=== PATIENT | male | born 1930 | race Caucasian/White ===

== ENCOUNTER 2018-04-13 12:52 | Emergency (ER) | payer MEDICARE, BC ==
[2018-04-13 13:16] LABS: ADD MAN DIFF? NO
[2018-04-13] MEDS: SOD CHLORIDE 0.9% 1,000 ML IV (13:16)
[2018-04-13 13:18] LABS: ABNORMAL IP MESSAGE 1; BASOPHILS % 0.2 % (0.0-2.0); EOSINOPHILS % 0.2 % (0.0-7.0); LYMPHOCYTES # 1.8 10^3/ul (0.8-2.9); MEAN CORPUSCULAR HEMOGLOBIN 31.4 pg (29.0-33.0); MEAN CORPUSCULAR HGB CONC 32.4 g/dl (32.0-37.0); MEAN CORPUSCULAR VOLUME 97.1 fl (82.0-101.0); MEAN PLATELET VOLUME 10.8 fl (7.4-10.4); MONOCYTE # 1.2 10^3/ul (0.3-0.9); MONOCYTES % 21.6 % (0.0-11.0); NEUTROPHIL # 2.7 10^3/ul (1.6-7.5); NEUTROPHILS % 46.3 % (39.0-77.0); PLATELET COUNT 96 10^3/UL (140-415); POSITIVE DIFF @See below; RED CELL DISTRIBUTION WIDTH 13.9 % (11.5-14.5)
[2018-04-13 13:18] LABS: WHITE BLOOD COUNT 5.7 10^3/ul (4.8-10.8)
[2018-04-13 13:40] LABS: ANION GAP 5 (5-13); BLOOD UREA NITROGEN 17 mg/dl (7-20); CALCIUM 8.4 mg/dl (8.4-10.2); CARBON DIOXIDE 25 mmol/L (21-31); CHLORIDE 110 mmol/L (97-110); CREATININE 0.98 mg/dl (0.61-1.24); GLUCOSE 106 mg/dl (70-220); POTASSIUM 4.4 mmol/L (3.5-5.1); SODIUM 140 mmol/L (135-144)
[2018-04-13 13:51] LABS: TROPONIN-I < 0.012 ng/ml (0.000-0.120)
[2018-04-13] MEDS: IOHEXOL 100 ML (13:55)
[2018-04-13] MEDS: SOD CHLORIDE 0.9% 100 ML (13:55)
[2018-04-13 14:32] LABS: INR 1.13; PROTIME 14.7 Sec (11.9-14.9); PT RATIO 1.1
[2018-04-13 14:33] LABS: PARTIAL THROMBOPLASTIN TIME 27.8 Sec (23.0-35.0)
== END 2018-04-13 20:07 | disposition short-term general hospital (02) ==
LOC: E/R 12:52
DX: I71.4 Abdominal aortic aneurysm, without rupture (principal); J44.9 Chronic obstructive pulmonary disease, unspecified; I10 Essential (primary) hypertension; Z79.01 Long term (current) use of anticoagulants; Z79.82 Long term (current) use of aspirin; Z87.891 Personal history of nicotine dependence
CPT/HCPCS: 36415; 70450; 71045; 75635; 80048; 84484; 85025; 85610; 85730; 93005; 99285-25

== ENCOUNTER 2018-07-25 17:17 | Inpatient (IN) | payer MEDICARE, BC ==
[2018-07-25 19:11] LABS: ADD MAN DIFF? NO
[2018-07-25 19:13] LABS: ABNORMAL IP MESSAGE 1; BASOPHILS % 0.2 % (0.0-2.0); EOSINOPHILS # 0.1 10^3/ul (0.0-0.5); EOSINOPHILS % 1.6 % (0.0-7.0); HEMATOCRIT 30.9 % (42.0-52.0); HEMOGLOBIN 9.9 g/dl (14.0-18.0); LYMPHOCYTES # 1.6 10^3/ul (0.8-2.9); LYMPHOCYTES % 27.8 % (15.0-51.0); MEAN CORPUSCULAR VOLUME 96.9 fl (82.0-101.0); MEAN PLATELET VOLUME 9.7 fl (7.4-10.4); MONOCYTE # 0.8 10^3/ul (0.3-0.9); MONOCYTES % 13.5 % (0.0-11.0); NEUTROPHIL # 3.2 10^3/ul (1.6-7.5); NEUTROPHILS % 55.9 % (39.0-77.0); PLATELET COUNT 92 10^3/UL (140-415); POSITIVE DIFF @See below; RED BLOOD COUNT 3.19 10^6/ul (4.70-6.10); RED CELL DISTRIBUTION WIDTH 15.6 % (11.5-14.5)
[2018-07-25 19:13] LABS: WHITE BLOOD COUNT 5.7 10^3/ul (4.8-10.8)
[2018-07-25 19:14] LABS: URINE BLOOD (Dip) POC Negative (NEGATIVE); URINE GLUCOSE (Dip) POC Negative (NEGATIVE); URINE KETONES (Dip) POC 1+ (NEGATIVE); URINE LEUKOCYTE EST (Dip) POC Negative (NEGATIVE); URINE NITRITE (Dip) POC Negative (NEGATIVE); URINE TOTAL PROTEIN POC Negative (NEGATIVE)
[2018-07-25 19:34] LABS: ALANINE AMINOTRANSFERASE 18 IU/L (13-69); ALBUMIN/GLOBULIN RATIO 1.07; ALKALINE PHOSPHATASE 52 IU/L (42-121); ANION GAP 8 (5-13); ASPARTATE AMINO TRANSFERASE 17 IU/L (15-46); BILIRUBIN,INDIRECT 0.1 mg/dl (0-1.1); BILIRUBIN,TOTAL 0.1 mg/dl (0.2-1.3); BLOOD UREA NITROGEN 12 mg/dl (7-20); CALCIUM 8.3 mg/dl (8.4-10.2); CARBON DIOXIDE 27 mmol/L (21-31); CHLORIDE 107 mmol/L (97-110); GLUCOSE 84 mg/dl (70-220); LIPASE 121 U/L (23-300); POTASSIUM 4.6 mmol/L (3.5-5.1); SODIUM 142 mmol/L (135-144); TOTAL PROTEIN 5.8 g/dl (6.1-8.1)
[2018-07-25] MEDS ORDERED: NACL 0.9% 3 ML SYG IV (21:30)
[2018-07-25] MEDS ORDERED: morphine 2 MG INJ IV (21:30)
[2018-07-25] MEDS ORDERED: LABETALOL HCL 20MG INJ IV (21:30)
[2018-07-25] MEDS ORDERED: ONDANSETRON 4 MG INJ IV (21:30)
[2018-07-25] MEDS: SOD CHLORIDE 0.9% 1,000 ML IV (21:46)
[2018-07-25] MEDS: VALPROATE INJ 500 MG in SOD CHLORIDE 0.9% 50 ML IVPB (21:46)
[2018-07-25] MEDS: SOD CHLORIDE 0.9% 100 ML (21:53)
[2018-07-25] MEDS: IOHEXOL 100 ML (21:54)
[2018-07-25] MEDS ORDERED: LIDOCAINE 5% PATCH TD (22:00)
[2018-07-25 22:09] LABS: PLATELET COUNT 98 10^3/UL (140-415)
[2018-07-25 22:19] LABS: INR 1.09; PROTIME 14.2 Sec (11.9-14.9); PT RATIO 1.1
[2018-07-25 22:27] LABS: THROMBIN TIME 15.4 SEC (13.8-19.1)
[2018-07-25 22:39] LABS: VALPROATE 89 ug/ml (50-100)
[2018-07-26] MEDS: CEFEPIME 1GM/50 ML (PMX) 50 ML IVPB ×3 (00:22→21:59)
[2018-07-26 05:47] LABS: ADD MAN DIFF? NO
[2018-07-26] MEDS: PANTOPRAZOLE 40 MG INJ IV ×2 (05:59→08:43)
[2018-07-26 06:15] LABS: WHITE BLOOD COUNT 4.3 10^3/ul (4.8-10.8)
[2018-07-26 06:15] LABS: ABNORMAL IP MESSAGE 1; BASOPHILS % 0.2 % (0.0-2.0); EOSINOPHILS # 0.1 10^3/ul (0.0-0.5); EOSINOPHILS % 2.3 % (0.0-7.0); HEMOGLOBIN 9.5 g/dl (14.0-18.0); LYMPHOCYTES # 1.4 10^3/ul (0.8-2.9); LYMPHOCYTES % 32.9 % (15.0-51.0); MEAN CORPUSCULAR HEMOGLOBIN 31.1 pg (29.0-33.0); MEAN CORPUSCULAR HGB CONC 32.8 g/dl (32.0-37.0); MEAN CORPUSCULAR VOLUME 95.1 fl (82.0-101.0); MEAN PLATELET VOLUME 9.9 fl (7.4-10.4); MONOCYTE # 0.7 10^3/ul (0.3-0.9); MONOCYTES % 16.7 % (0.0-11.0); NEUTROPHILS % 46.7 % (39.0-77.0); PLATELET COUNT 84 10^3/UL (140-415); POSITIVE DIFF @See below; RED BLOOD COUNT 3.05 10^6/ul (4.70-6.10); RED CELL DISTRIBUTION WIDTH 15.6 % (11.5-14.5)
[2018-07-26 06:22] LABS: ALANINE AMINOTRANSFERASE 18 IU/L (13-69); ALBUMIN 2.7 g/dl (3.3-4.9); ALKALINE PHOSPHATASE 48 IU/L (42-121); ANION GAP 7 (5-13); ASPARTATE AMINO TRANSFERASE 15 IU/L (15-46); BILIRUBIN,INDIRECT 0.1 mg/dl (0-1.1); BILIRUBIN,TOTAL 0.1 mg/dl (0.2-1.3); BLOOD UREA NITROGEN 12 mg/dl (7-20); CARBON DIOXIDE 27 mmol/L (21-31); CHLORIDE 106 mmol/L (97-110); CHOL/HDL RATIO 2.4 RATIO; CHOLESTEROL 74 mg/dl (100-200); CREATININE 0.96 mg/dl (0.61-1.24); GLUCOSE 77 mg/dl (70-220); HDL CHOLESTEROL 30 mg/dl (31-75); LDL CHOLESTEROL,CALCULATED 28 mg/dl; POTASSIUM 4.2 mmol/L (3.5-5.1); SODIUM 140 mmol/L (135-144); TOTAL PROTEIN 5.4 g/dl (6.1-8.1); TRIGLYCERIDES 82 mg/dl (0-149)
[2018-07-26 06:40] LABS: HEMOGLOBIN A1C 4.8 % (0-5.9)
[2018-07-26] MEDS: SOD CHLORIDE 0.9% 1,000 ML IV (06:45)
[2018-07-26] MEDS: VALPROATE INJ 500 MG in SOD CHLORIDE 0.9% 50 ML IVPB (11:09)
[2018-07-26] MEDS: METOPROLOL 25 MG TAB PO ×2 (12:30→22:00)
[2018-07-26] MEDS: DIVALPROEX (EC) 500 MG TAB PO ×2 (14:35→21:59)
[2018-07-26] MEDS: ATORVASTATIN 40 MG TAB PO (22:03)
[2018-07-27 01:19] LABS: AMPHETAMINE/METHAMPHETAMINE Negative (NEGATIVE); BARBITURATES Negative (NEGATIVE); BENZODIAZEPINES Negative (NEGATIVE); CANNABINOIDS Negative (NEGATIVE); COCAINE Negative (NEGATIVE); OPIATES Negative (NEGATIVE)
[2018-07-27] MEDS: traZODone 50 MG TAB PO (01:39)
[2018-07-27 05:24] LABS: ADD MAN DIFF? NO
[2018-07-27 05:41] LABS: ABNORMAL IP MESSAGE 1; BASOPHILS % 0.2 % (0.0-2.0); EOSINOPHILS # 0.1 10^3/ul (0.0-0.5); EOSINOPHILS % 1.8 % (0.0-7.0); HEMATOCRIT 28.7 % (42.0-52.0); HEMOGLOBIN 9.5 g/dl (14.0-18.0); LYMPHOCYTES # 1.6 10^3/ul (0.8-2.9); LYMPHOCYTES % 26.7 % (15.0-51.0); MEAN CORPUSCULAR HGB CONC 33.1 g/dl (32.0-37.0); MEAN CORPUSCULAR VOLUME 93.8 fl (82.0-101.0); MEAN PLATELET VOLUME 9.8 fl (7.4-10.4); MONOCYTE # 0.9 10^3/ul (0.3-0.9); MONOCYTES % 14.3 % (0.0-11.0); NEUTROPHIL # 3.3 10^3/ul (1.6-7.5); PLATELET COUNT 93 10^3/UL (140-415); POSITIVE DIFF @See below; RED BLOOD COUNT 3.06 10^6/ul (4.70-6.10); RED CELL DISTRIBUTION WIDTH 15.1 % (11.5-14.5)
[2018-07-27 05:53] LABS: ALANINE AMINOTRANSFERASE 16 IU/L (13-69); ALBUMIN 2.8 g/dl (3.3-4.9); ALBUMIN/GLOBULIN RATIO 1.12; ALKALINE PHOSPHATASE 53 IU/L (42-121); ANION GAP 5 (5-13); ASPARTATE AMINO TRANSFERASE 15 IU/L (15-46); BILIRUBIN,INDIRECT 0.1 mg/dl (0-1.1); BILIRUBIN,TOTAL 0.1 mg/dl (0.2-1.3); BLOOD UREA NITROGEN 11 mg/dl (7-20); CALCIUM 7.9 mg/dl (8.4-10.2); CARBON DIOXIDE 27 mmol/L (21-31); CHLORIDE 106 mmol/L (97-110); CREATININE 0.98 mg/dl (0.61-1.24); GLUCOSE 80 mg/dl (70-220); POTASSIUM 4.1 mmol/L (3.5-5.1); SODIUM 138 mmol/L (135-144); TOTAL PROTEIN 5.3 g/dl (6.1-8.1)
[2018-07-27] MEDS: PANTOPRAZOLE (EC) 40 MG TAB PO (06:10)
[2018-07-27 06:11] LABS: INR 1.12; PROTIME 14.5 Sec (11.9-14.9); PT RATIO 1.1
[2018-07-27] MEDS: SOD CHLORIDE 0.9% 1,000 ML IV ×2 (06:11→16:14)
[2018-07-27 06:12] LABS: PARTIAL THROMBOPLASTIN TIME 29.5 Sec (23.0-35.0)
[2018-07-27] MEDS: DIVALPROEX (EC) 500 MG TAB PO ×3 (08:01→21:44)
[2018-07-27] MEDS: CEFEPIME 1GM/50 ML (PMX) 50 ML IVPB ×2 (08:01→21:44)
[2018-07-27] MEDS: METOPROLOL 25 MG TAB PO ×2 (08:02→21:45)
[2018-07-27 10:15] LABS: ANISOCYTOSIS 1+ (0-0); BAND NEUTROPHILS #M 0.1 10^3/ul (0.0-0.6); BAND NEUTROPHILS % (M) 2 % (0-4); BURR CELLS 1+ (0-0); EOSINOPHILS % (M) 3 % (0-7); LYMPHOCYTES % (M) 17 % (15-51); MONOCYTE #M 0.5 10^3/ul (0.3-0.9); MONOCYTES % (M) 9 % (0-11); PLATELET ESTIMATE DECREASED; POIKILOCYTOSIS 1+ (0-0); POLYCHROMASIA 3+ (0-0); REACTIVE LYMPHOCYTES% (M) 1 % (0-0); SEG NEUT #M 4.1 10^3/ul (1.6-7.5); SEGMENTED NEUTROPHILS (M) % 68 % (39-77); SMUDGE%M 9 % (0-0)
[2018-07-27] MEDS: ATORVASTATIN 40 MG TAB PO (21:44)
[2018-07-28] MEDS: PANTOPRAZOLE (EC) 40 MG TAB PO (06:26)
[2018-07-28] MEDS: DIVALPROEX (EC) 500 MG TAB PO ×3 (09:47→21:05)
[2018-07-28] MEDS: CEFEPIME 1GM/50 ML (PMX) 50 ML IVPB ×2 (09:47→21:04)
[2018-07-28] MEDS: METOPROLOL 25 MG TAB PO (09:47)
[2018-07-28] MEDS: ATORVASTATIN 40 MG TAB PO (21:05)
[2018-07-29] MEDS: PANTOPRAZOLE (EC) 40 MG TAB PO (05:44)
[2018-07-29] MEDS: CEFEPIME 1GM/50 ML (PMX) 50 ML IVPB ×2 (08:48→20:46)
[2018-07-29] MEDS: DIVALPROEX (EC) 500 MG TAB PO ×3 (08:48→20:46)
[2018-07-29] MEDS: ATORVASTATIN 40 MG TAB PO (20:46)
[2018-07-30] MEDS: PANTOPRAZOLE (EC) 40 MG TAB PO (05:42)
[2018-07-30] MEDS: CEFEPIME 1GM/50 ML (PMX) 50 ML IVPB (08:09)
[2018-07-30] MEDS: DIVALPROEX (EC) 500 MG TAB PO ×2 (08:09→12:19)
== END 2018-07-30 15:15 | DRG 87 ==
LOC: ICU 21:11 → 6WM 07-27 06:23 → E/R 17:17
DX: S06.6X0A Traumatic subarachnoid hemorrhage without loss of consciousness, initial encounter (principal); D69.6 Thrombocytopenia, unspecified; G20 Parkinson's disease; J44.9 Chronic obstructive pulmonary disease, unspecified; G40.909 Epilepsy, unspecified, not intractable, without status epilepticus; F02.80 Dementia in other diseases classified elsewhere, unspecified severity, without behavioral disturbance, psychotic disturbance, mood disturbance, and anxiety; I10 Essential (primary) hypertension; F31.9 Bipolar disorder, unspecified; K21.9 Gastro-esophageal reflux disease without esophagitis; E78.5 Hyperlipidemia, unspecified; R07.81 Pleurodynia; I25.10 Atherosclerotic heart disease of native coronary artery without angina pectoris; R29.6 Repeated falls; Z79.82 Long term (current) use of aspirin; Z79.02 Long term (current) use of antithrombotics/antiplatelets; Z87.891 Personal history of nicotine dependence; Z90.3 Acquired absence of stomach [part of]; Z90.49 Acquired absence of other specified parts of digestive tract; Z95.5 Presence of coronary angioplasty implant and graft
CPT/HCPCS: 36415; 70450; 70496; 71045; 71100; 80053; 80061; 80164; 80307; 81003; 83036; 83690; 83735; 85025; 85049; 85610; 85670; 85730; 87081; 93005; 93306; 93880; 93970; 97110; 97116; 97162; 97530; 99291-25

== ENCOUNTER 2018-07-30 15:21 | Inpatient (IN) | payer MEDICARE, BC ==
[2018-07-30 17:14] LABS: ADD UMIC NO; UR ASCORBIC ACID NEGATIVE (NEGATIVE); UR BILIRUBIN (Dip) NEGATIVE (NEGATIVE); UR BLOOD (Dip) NEGATIVE (NEGATIVE); UR CLARITY CLEAR (CLEAR); UR COLOR STRAW (YELLOW); UR GLUCOSE (Dip) NEGATIVE (NEGATIVE); UR KETONES (Dip) NEGATIVE (NEGATIVE); UR LEUKOCYTE ESTERASE (Dip) NEGATIVE Leu/ul (NEGATIVE); UR NITRITE (Dip) NEGATIVE (NEGATIVE); UR SPECIFIC GRAVITY (Dip) 1.006 (1.003-1.030); UR TOTAL PROTEIN (Dip) NEGATIVE (NEGATIVE); UR UROBILINOGEN (Dip) NEGATIVE (NEGATIVE)
[2018-07-30] MEDS ORDERED: BISACODYL 10 MG SUPP PR (17:30)
[2018-07-30] MEDS ORDERED: ONDANSETRON 4 MG INJ IV (17:30)
[2018-07-30] MEDS ORDERED: ACETAMINOPHEN 325 MG TAB PO (17:30)
[2018-07-30] MEDS ORDERED: LIDOCAINE 5% PATCH TD (17:30)
[2018-07-30] MEDS ORDERED: PENDING SANTYL ORDER FOR WOUND CARE XX (17:30)
[2018-07-30] MEDS: SENNA TAB PO (21:00)
[2018-07-30] MEDS: DOCUSATE SODIUM 100 MG CAP PO (21:00)
[2018-07-30] MEDS ORDERED: DIVALPROEX (EC) 500 MG TAB PO (21:00)
[2018-07-30] MEDS: ATORVASTATIN 40 MG TAB PO (21:00)
[2018-07-30] MEDS: DIVALPROEX (EC) 250 MG TAB PO (21:06)
[2018-07-30] MEDS: traZODone 50 MG TAB PO (21:48)
[2018-07-31] MEDS: PANTOPRAZOLE (EC) 40 MG TAB PO (06:16)
[2018-07-31 07:11] LABS: ADD MAN DIFF? NO
[2018-07-31 07:19] LABS: ABNORMAL IP MESSAGE 1; EOSINOPHILS # 0.1 10^3/ul (0.0-0.5); EOSINOPHILS % 1.5 % (0.0-7.0); HEMATOCRIT 33.4 % (42.0-52.0); HEMOGLOBIN 10.8 g/dl (14.0-18.0); LYMPHOCYTES # 1.5 10^3/ul (0.8-2.9); LYMPHOCYTES % 37.3 % (15.0-51.0); MEAN CORPUSCULAR HEMOGLOBIN 30.3 pg (29.0-33.0); MEAN CORPUSCULAR HGB CONC 32.3 g/dl (32.0-37.0); MEAN CORPUSCULAR VOLUME 93.8 fl (82.0-101.0); MEAN PLATELET VOLUME 10.1 fl (7.4-10.4); MONOCYTE # 0.7 10^3/ul (0.3-0.9); MONOCYTES % 17.4 % (0.0-11.0); NEUTROPHIL # 1.7 10^3/ul (1.6-7.5); NEUTROPHILS % 42.6 % (39.0-77.0); PLATELET COUNT 80 10^3/UL (140-415); POSITIVE DIFF @See below; RED BLOOD COUNT 3.56 10^6/ul (4.70-6.10); RED CELL DISTRIBUTION WIDTH 14.5 % (11.5-14.5)
[2018-07-31 07:19] LABS: WHITE BLOOD COUNT 4.1 10^3/ul (4.8-10.8)
[2018-07-31 07:51] LABS: ALANINE AMINOTRANSFERASE 18 IU/L (13-69); ALKALINE PHOSPHATASE 44 IU/L (42-121); ANION GAP 11 (5-13); ASPARTATE AMINO TRANSFERASE 18 IU/L (15-46); BILIRUBIN,INDIRECT 0.3 mg/dl (0-1.1); BILIRUBIN,TOTAL 0.3 mg/dl (0.2-1.3); BLOOD UREA NITROGEN 11 mg/dl (7-20); CALCIUM 8.7 mg/dl (8.4-10.2); CARBON DIOXIDE 28 mmol/L (21-31); CHLORIDE 100 mmol/L (97-110); CREATININE 1.02 mg/dl (0.61-1.24); GLUCOSE 77 mg/dl (70-220); POTASSIUM 4.4 mmol/L (3.5-5.1); SODIUM 139 mmol/L (135-144)
[2018-07-31] MEDS: DOCUSATE SODIUM 100 MG CAP PO ×2 (08:42→20:44)
[2018-07-31] MEDS: DIVALPROEX (EC) 250 MG TAB PO ×3 (08:43→20:44)
[2018-07-31] MEDS: POTASSIUM CHLORIDE (SR) 10 MEQ TAB PO (08:43)
[2018-07-31] MEDS: LISINOPRIL 5 MG TAB PO (12:46)
[2018-07-31] MEDS: ATORVASTATIN 40 MG TAB PO (20:43)
[2018-07-31] MEDS: SENNA TAB PO (20:43)
[2018-08-01] MEDS: traZODone 50 MG TAB PO (01:02)
[2018-08-01] MEDS: PANTOPRAZOLE (EC) 40 MG TAB PO (06:30)
[2018-08-01] MEDS: DOCUSATE SODIUM 100 MG CAP PO ×2 (08:29→21:39)
[2018-08-01] MEDS: DIVALPROEX (EC) 250 MG TAB PO ×3 (08:29→21:39)
[2018-08-01] MEDS: POTASSIUM CHLORIDE (SR) 10 MEQ TAB PO (08:30)
[2018-08-01] MEDS: LISINOPRIL 5 MG TAB PO (08:30)
[2018-08-01] MEDS: MAGNESIUM HYDROXIDE 30ML CUP PO (12:20)
[2018-08-01] MEDS: SENNA TAB PO (21:38)
[2018-08-01] MEDS: OLOPATADINE 0.1% 5 ML OPH BOTH EYES (21:39)
[2018-08-01] MEDS: ATORVASTATIN 40 MG TAB PO (21:39)
[2018-08-02] MEDS: PANTOPRAZOLE (EC) 40 MG TAB PO (06:30)
[2018-08-02] MEDS: LACTULOSE 30ML CUP PO (09:47)
[2018-08-02] MEDS: OLOPATADINE 0.1% 5 ML OPH BOTH EYES ×2 (09:47→20:23)
[2018-08-02] MEDS: DIVALPROEX (EC) 250 MG TAB PO ×3 (09:48→20:22)
[2018-08-02] MEDS: LISINOPRIL 5 MG TAB PO (09:48)
[2018-08-02] MEDS: POTASSIUM CHLORIDE (SR) 10 MEQ TAB PO (09:48)
[2018-08-02] MEDS: DOCUSATE SODIUM 100 MG CAP PO ×2 (09:48→20:22)
[2018-08-02] MEDS: ATORVASTATIN 40 MG TAB PO (20:22)
[2018-08-02] MEDS: SENNA TAB PO (20:22)
[2018-08-03] MEDS: PANTOPRAZOLE (EC) 40 MG TAB PO (06:16)
[2018-08-03] MEDS: DOCUSATE SODIUM 100 MG CAP PO ×3 (09:00→20:41)
[2018-08-03] MEDS: OLOPATADINE 0.1% 5 ML OPH BOTH EYES ×2 (09:08→20:50)
[2018-08-03] MEDS: POTASSIUM CHLORIDE (SR) 10 MEQ TAB PO (09:09)
[2018-08-03] MEDS: DIVALPROEX (EC) 250 MG TAB PO ×3 (09:09→20:41)
[2018-08-03] MEDS: LISINOPRIL 5 MG TAB PO (09:09)
[2018-08-03] MEDS: ATORVASTATIN 40 MG TAB PO (20:41)
[2018-08-03] MEDS: SENNA TAB PO (20:43)
[2018-08-04] MEDS: PANTOPRAZOLE (EC) 40 MG TAB PO (06:37)
[2018-08-04] MEDS: POTASSIUM CHLORIDE (SR) 10 MEQ TAB PO (08:25)
[2018-08-04] MEDS: DOCUSATE SODIUM 100 MG CAP PO ×2 (08:25→20:53)
[2018-08-04] MEDS: LISINOPRIL 5 MG TAB PO (08:26)
[2018-08-04] MEDS: OLOPATADINE 0.1% 5 ML OPH BOTH EYES ×2 (09:00→20:53)
[2018-08-04] MEDS: DIVALPROEX (EC) 250 MG TAB PO ×3 (09:21→20:54)
[2018-08-04] MEDS: SENNA TAB PO (20:53)
[2018-08-04] MEDS: ATORVASTATIN 40 MG TAB PO (20:54)
[2018-08-05] MEDS: PANTOPRAZOLE (EC) 40 MG TAB PO (06:53)
[2018-08-05] MEDS: DOCUSATE SODIUM 100 MG CAP PO ×2 (08:15→21:08)
[2018-08-05] MEDS: DIVALPROEX (EC) 250 MG TAB PO ×3 (08:16→21:08)
[2018-08-05] MEDS: POTASSIUM CHLORIDE (SR) 10 MEQ TAB PO (08:16)
[2018-08-05] MEDS: LISINOPRIL 5 MG TAB PO (08:17)
[2018-08-05] MEDS: SENNA TAB PO (21:00)
[2018-08-05] MEDS: ATORVASTATIN 40 MG TAB PO (21:08)
[2018-08-05] MEDS: OLOPATADINE 0.2% (ONCE A DAY) OPHTH DROP 2.5 ML BOTH EYES (21:09)
[2018-08-05] MEDS: ACETAMINOPHEN 325 MG TAB PO (21:11)
[2018-08-05] MEDS: traZODone 50 MG TAB PO (21:11)
[2018-08-06] MEDS: PANTOPRAZOLE (EC) 40 MG TAB PO (06:24)
[2018-08-06] MEDS: DOCUSATE SODIUM 100 MG CAP PO ×2 (08:57→20:57)
[2018-08-06] MEDS: DIVALPROEX (EC) 250 MG TAB PO ×3 (08:57→20:57)
[2018-08-06] MEDS: LISINOPRIL 5 MG TAB PO (08:58)
[2018-08-06] MEDS: POTASSIUM CHLORIDE (SR) 10 MEQ TAB PO (09:03)
[2018-08-06] MEDS: ACETAMINOPHEN 325 MG TAB PO ×2 (13:19→20:59)
[2018-08-06] MEDS: ATORVASTATIN 40 MG TAB PO (20:56)
[2018-08-06] MEDS: OLOPATADINE 0.2% (ONCE A DAY) OPHTH DROP 2.5 ML BOTH EYES (20:57)
[2018-08-06] MEDS: SENNA TAB PO (20:57)
[2018-08-06] MEDS: traZODone 50 MG TAB PO (20:59)
[2018-08-07] MEDS: PANTOPRAZOLE (EC) 40 MG TAB PO (06:27)
[2018-08-07 07:28] LABS: CHLORIDE 101 mmol/L (97-110)
[2018-08-07 07:30] LABS: BLOOD UREA NITROGEN 17 mg/dl (7-20); CALCIUM 8.4 mg/dl (8.4-10.2); CARBON DIOXIDE 29 mmol/L (21-31); CREATININE 0.97 mg/dl (0.61-1.24); GLUCOSE 75 mg/dl (70-220); POTASSIUM 4.4 mmol/L (3.5-5.1); SODIUM 136 mmol/L (135-144)
[2018-08-07] MEDS: DOCUSATE SODIUM 100 MG CAP PO ×2 (08:01→20:44)
[2018-08-07] MEDS: LISINOPRIL 5 MG TAB PO (08:01)
[2018-08-07] MEDS: DIVALPROEX (EC) 250 MG TAB PO ×3 (08:01→20:45)
[2018-08-07] MEDS: POTASSIUM CHLORIDE (SR) 10 MEQ TAB PO (08:02)
[2018-08-07 08:31] LABS: ANION GAP 6 (5-13)
[2018-08-07] MEDS: ACETAMINOPHEN 325 MG TAB PO (13:14)
[2018-08-07] MEDS: SENNA TAB PO (20:44)
[2018-08-07] MEDS: ATORVASTATIN 40 MG TAB PO (20:44)
[2018-08-07] MEDS: OLOPATADINE 0.2% (ONCE A DAY) OPHTH DROP 2.5 ML BOTH EYES (20:45)
[2018-08-08] MEDS: PANTOPRAZOLE (EC) 40 MG TAB PO (06:09)
[2018-08-08] MEDS: POTASSIUM CHLORIDE (SR) 10 MEQ TAB PO (07:52)
[2018-08-08] MEDS: DOCUSATE SODIUM 100 MG CAP PO ×2 (07:52→20:42)
[2018-08-08] MEDS: ACETAMINOPHEN 325 MG TAB PO (07:52)
[2018-08-08] MEDS: DIVALPROEX (EC) 250 MG TAB PO ×3 (07:52→20:42)
[2018-08-08] MEDS: LISINOPRIL 5 MG TAB PO (07:53)
[2018-08-08] MEDS: traMADol 50 MG TAB PO (14:34)
[2018-08-08] MEDS: OLOPATADINE 0.2% (ONCE A DAY) OPHTH DROP 2.5 ML BOTH EYES (20:42)
[2018-08-08] MEDS: SENNA TAB PO (20:42)
[2018-08-08] MEDS: ATORVASTATIN 40 MG TAB PO (20:42)
[2018-08-08] MEDS: traZODone 50 MG TAB PO (22:36)
[2018-08-09] MEDS: PANTOPRAZOLE (EC) 40 MG TAB PO (06:19)
[2018-08-09] MEDS: POTASSIUM CHLORIDE (SR) 10 MEQ TAB PO (08:41)
[2018-08-09] MEDS: DOCUSATE SODIUM 100 MG CAP PO ×2 (08:41→21:47)
[2018-08-09] MEDS: LISINOPRIL 5 MG TAB PO (08:41)
[2018-08-09] MEDS: DIVALPROEX (EC) 250 MG TAB PO ×3 (08:42→21:47)
[2018-08-09] MEDS: CEPASTAT LOZENGE MT (21:47)
[2018-08-09] MEDS: SENNA TAB PO (21:47)
[2018-08-09] MEDS: ATORVASTATIN 40 MG TAB PO (21:47)
[2018-08-09] MEDS: OLOPATADINE 0.2% (ONCE A DAY) OPHTH DROP 2.5 ML BOTH EYES (21:48)
[2018-08-09] MEDS: traZODone 50 MG TAB PO (21:49)
[2018-08-10] MEDS: PANTOPRAZOLE (EC) 40 MG TAB PO (06:41)
[2018-08-10] MEDS: DIVALPROEX (EC) 250 MG TAB PO (08:25)
[2018-08-10] MEDS: LISINOPRIL 5 MG TAB PO (08:26)
[2018-08-10] MEDS: DOCUSATE SODIUM 100 MG CAP PO (08:26)
[2018-08-10] MEDS: POTASSIUM CHLORIDE (SR) 10 MEQ TAB PO (08:26)
== END 2018-08-10 09:50 | disposition home health service (06) | DRG 56 ==
LOC: VRC 15:21
DX: I69.851 Hemiplegia and hemiparesis following other cerebrovascular disease affecting right dominant side (principal); S06.6X0A Traumatic subarachnoid hemorrhage without loss of consciousness, initial encounter; J18.9 Pneumonia, unspecified organism; J44.0 Chronic obstructive pulmonary disease with (acute) lower respiratory infection; F31.89 Other bipolar disorder; W19.XXXA Unspecified fall, initial encounter; F03.90 Unspecified dementia, unspecified severity, without behavioral disturbance, psychotic disturbance, mood disturbance, and anxiety; I25.10 Atherosclerotic heart disease of native coronary artery without angina pectoris; Z95.5 Presence of coronary angioplasty implant and graft; I10 Essential (primary) hypertension; G40.909 Epilepsy, unspecified, not intractable, without status epilepticus; K21.9 Gastro-esophageal reflux disease without esophagitis; E78.5 Hyperlipidemia, unspecified; D64.9 Anemia, unspecified; F06.8 Other specified mental disorders due to known physiological condition
CPT/HCPCS: 80048; 80053; 81003; 85025; 87081; 87086; 92507; 92523; 97110; 97112; 97116; 97163; 97166; 97530; 97535; 97542

== ENCOUNTER 2018-11-28 21:05 | Inpatient (IN) | payer MEDICARE, BC ==
[2018-11-28 22:25] LABS: WHITE BLOOD COUNT 5.2 10^3/ul (4.8-10.8)
[2018-11-28 22:25] LABS: ABNORMAL IP MESSAGE 1; HEMATOCRIT 34.8 % (42.0-52.0); HEMOGLOBIN 11.5 g/dl (14.0-18.0); MEAN CORPUSCULAR HEMOGLOBIN 33.1 pg (29.0-33.0); MEAN CORPUSCULAR VOLUME 100.3 fl (82.0-101.0); MEAN PLATELET VOLUME 11.1 fl (7.4-10.4); PLATELET COUNT 60 10^3/UL (140-415); POSITIVE DIFF @See below; RED BLOOD COUNT 3.47 10^6/ul (4.70-6.10); RED CELL DISTRIBUTION WIDTH 15.2 % (11.5-14.5)
[2018-11-28 22:28] LABS: ADD MAN DIFF? YES
[2018-11-28 22:42] LABS: INR 1.18; PROTIME 15.1 Sec (11.9-14.9); PT RATIO 1.2
[2018-11-28 22:43] LABS: PARTIAL THROMBOPLASTIN TIME 28.3 Sec (23.0-35.0)
[2018-11-28 22:47] LABS: ANION GAP 7 (5-13); BLOOD UREA NITROGEN 20 mg/dl (7-20); CALCIUM 8.5 mg/dl (8.4-10.2); CARBON DIOXIDE 29 mmol/L (21-31); CHLORIDE 99 mmol/L (97-110); CREATININE 1.02 mg/dl (0.61-1.24); GLUCOSE 95 mg/dl (70-220); POTASSIUM 4.1 mmol/L (3.5-5.1); SODIUM 135 mmol/L (135-144)
[2018-11-28 22:51] LABS: VALPROATE 120 ug/ml (50-100)
[2018-11-28 23:26] LABS: TROPONIN-I < 0.012 ng/ml (0.000-0.120)
[2018-11-28] MEDS ORDERED: NACL 0.9% 3 ML SYG IV (23:30)
[2018-11-28] MEDS ORDERED: ONDANSETRON 4 MG INJ IV (23:30)
[2018-11-28 23:39] LABS: ANISOCYTOSIS 1+ (0-0); BAND NEUTROPHILS #M 0.2 10^3/ul (0.0-0.6); BAND NEUTROPHILS % (M) 4 % (0-4); GIANT THROMBO% (M) 1 % (0-0); LYMPHOCYTES % (M) 40 % (15-51); MONOCYTE #M 0.8 10^3/ul (0.3-0.9); MONOCYTES % (M) 16 % (0-11); PLATELET ESTIMATE DECREASED; POIKILOCYTOSIS 2+ (0-0); SEG NEUT #M 2.1 10^3/ul (1.6-7.5); SEGMENTED NEUTROPHILS (M) % 40 % (39-77); SMUDGE%M 14 % (0-0)
[2018-11-29 05:38] LABS: ADD MAN DIFF? NO
[2018-11-29 05:43] LABS: WHITE BLOOD COUNT 5.1 10^3/ul (4.8-10.8)
[2018-11-29 05:43] LABS: ABNORMAL IP MESSAGE 1; BASOPHILS % 0.2 % (0.0-2.0); EOSINOPHILS % 0.4 % (0.0-7.0); HEMATOCRIT 34.8 % (42.0-52.0); HEMOGLOBIN 11.4 g/dl (14.0-18.0); LYMPHOCYTES # 2.1 10^3/ul (0.8-2.9); LYMPHOCYTES % 41.8 % (15.0-51.0); MEAN CORPUSCULAR HEMOGLOBIN 32.9 pg (29.0-33.0); MEAN CORPUSCULAR HGB CONC 32.8 g/dl (32.0-37.0); MEAN CORPUSCULAR VOLUME 100.3 fl (82.0-101.0); MEAN PLATELET VOLUME 9.8 fl (7.4-10.4); MONOCYTE # 0.8 10^3/ul (0.3-0.9); MONOCYTES % 16.4 % (0.0-11.0); NEUTROPHIL # 2.1 10^3/ul (1.6-7.5); NEUTROPHILS % 40.6 % (39.0-77.0); PLATELET COUNT 49 10^3/UL (140-415); POSITIVE DIFF @See below; RED BLOOD COUNT 3.47 10^6/ul (4.70-6.10)
[2018-11-29 05:49] LABS: HEMOGLOBIN A1C 4.7 % (0-5.9)
[2018-11-29 06:05] LABS: VALPROATE 94 ug/ml (50-100)
[2018-11-29 06:13] LABS: ALANINE AMINOTRANSFERASE 16 IU/L (13-69); ALBUMIN 2.7 g/dl (3.3-4.9); ALBUMIN/GLOBULIN RATIO 0.93; ALKALINE PHOSPHATASE 56 IU/L (42-121); ANION GAP 8 (5-13); ASPARTATE AMINO TRANSFERASE 24 IU/L (15-46); BILIRUBIN,INDIRECT 0.6 mg/dl (0-1.1); BILIRUBIN,TOTAL 0.6 mg/dl (0.2-1.3); BLOOD UREA NITROGEN 18 mg/dl (7-20); CALCIUM 8.4 mg/dl (8.4-10.2); CARBON DIOXIDE 28 mmol/L (21-31); CHLORIDE 103 mmol/L (97-110); CHOL/HDL RATIO 3.1 RATIO; CHOLESTEROL 104 mg/dl (100-200); CREATININE 0.93 mg/dl (0.61-1.24); GLUCOSE 74 mg/dl (70-220); HDL CHOLESTEROL 33 mg/dl (31-75); LDL CHOLESTEROL,CALCULATED 56 mg/dl; POTASSIUM 4.3 mmol/L (3.5-5.1); SODIUM 139 mmol/L (135-144); TOTAL PROTEIN 5.6 g/dl (6.1-8.1); TRIGLYCERIDES 76 mg/dl (0-149)
[2018-11-29] MEDS: SOD CHLORIDE 0.9% 250 ML IV* (10:11)
[2018-11-29 17:38] LABS: TYPE AND SCREEN 1 1
[2018-11-30] MEDS: NEOMYC/POLYMYX/BACIT 30 GM OINT TOP ×2 (16:28→20:40)
[2018-11-30] MEDS: MEGESTROL (40 MG/ML) 10ML CUP PO (20:40)
[2018-11-30] MEDS: DIVALPROEX (EC) 500 MG TAB PO (20:40)
[2018-12-01] MEDS: MULTIVITAMINS THERAPEUTIC TAB PO (08:14)
[2018-12-01] MEDS: DIVALPROEX (EC) 500 MG TAB PO ×3 (08:14→22:12)
[2018-12-01] MEDS: MEGESTROL (40 MG/ML) 10ML CUP PO (08:14)
[2018-12-01] MEDS: NEOMYC/POLYMYX/BACIT 30 GM OINT TOP (08:14)
[2018-12-02] MEDS: DIVALPROEX (EC) 500 MG TAB PO ×3 (08:12→20:45)
[2018-12-02] MEDS: MULTIVITAMINS THERAPEUTIC TAB PO (08:12)
[2018-12-03] MEDS: ACETAMINOPHEN 325 MG TAB PO ×2 (02:59→13:12)
[2018-12-03] MEDS: DIVALPROEX (EC) 500 MG TAB PO ×2 (08:35→12:47)
[2018-12-03] MEDS: MULTIVITAMINS THERAPEUTIC TAB PO (08:35)
[2018-12-03] MEDS: BISACODYL (EC) 5 MG TAB PO (09:32)
[2018-12-03] MEDS: DOCUSATE SODIUM 100 MG CAP PO (09:32)
== END 2018-12-03 16:35 | DRG 312 ==
LOC: 6WM 23:05 → E/R 21:05 → 6WM 11-29 15:15
PROC: 30233R1 Transfusion of Nonautologous Platelets into Peripheral Vein, Percutaneous Approach (ICD-10-PCS; principal; 2018-11-29)
DX: R55 Syncope and collapse (principal); E44.0 Moderate protein-calorie malnutrition; R00.1 Bradycardia, unspecified; D69.6 Thrombocytopenia, unspecified; G40.909 Epilepsy, unspecified, not intractable, without status epilepticus; F03.90 Unspecified dementia, unspecified severity, without behavioral disturbance, psychotic disturbance, mood disturbance, and anxiety; I73.9 Peripheral vascular disease, unspecified; F31.9 Bipolar disorder, unspecified; I25.10 Atherosclerotic heart disease of native coronary artery without angina pectoris; K21.9 Gastro-esophageal reflux disease without esophagitis; E78.5 Hyperlipidemia, unspecified; I10 Essential (primary) hypertension; R29.6 Repeated falls; S01.01XA Laceration without foreign body of scalp, initial encounter; T42.6X5A Adverse effect of other antiepileptic and sedative-hypnotic drugs, initial encounter; Z68.21 Body mass index [BMI] 21.0-21.9, adult; W01.0XXA Fall on same level from slipping, tripping and stumbling without subsequent striking against object, initial encounter; Y92.019 Unspecified place in single-family (private) house as the place of occurrence of the external cause; Y93.89 Activity, other specified; Y99.8 Other external cause status; Z79.82 Long term (current) use of aspirin; Z79.02 Long term (current) use of antithrombotics/antiplatelets; Z91.81 History of falling; Z87.891 Personal history of nicotine dependence; Z90.3 Acquired absence of stomach [part of]; Z95.5 Presence of coronary angioplasty implant and graft
CPT/HCPCS: 36415; 36430; 70450; 80048; 80053; 80061; 80164; 82962; 83036; 84443; 84484; 85025; 85610; 85730; 86644; 86850; 86900; 86901; 86945; 93005; 93306; 97116; 97163; 97530; 99285-25; G0378